=== PATIENT | male | born 1950 | race Caucasian/White ===

== ENCOUNTER → 2021-07-21 | Outpatient (CLI) | payer MEDICARE ==
[2021-07-21 09:07] LABS: MEAN CORPUSCULAR HEMOGLOBIN 35.3 pg (27.5-34.5); MEAN CORPUSCULAR HGB CONC 34.3 g/dL (33.2-36.2); MEAN PLATELET VOLUME 8.8 fL (7.4-10.4); PLATELET COUNT 278 x10^3/uL (130-400); RED BLOOD COUNT 3.85 x10^6/uL (4.38-5.82); RED CELL DISTRIBUTION WIDTH 12.7 % (9.4-14.8)
[2021-07-21 09:15] LABS: ALANINE AMINOTRANSFERASE 25 U/L (12-78); ALBUMIN 3.9 g/dL (3.4-5.0); ANION GAP 7 mmol/L (5-15); CALCIUM 9.1 mg/dL (8.5-10.1); CHLORIDE 107 mmol/L (98-107); CREATININE 0.99 mg/dL (0.7-1.3)
[2021-07-21 09:29] LABS: ALKALINE PHOSPHATASE 36 U/L (45-117); BILIRUBIN,TOTAL 0.7 mg/dL (0.2-1.0); CHOL/HDL RATIO 2.4; CHOLESTEROL, TOTAL 205 mg/dL (140-239); HDL CHOL % 41 % (26-37); HDL CHOLESTEROL (DIRECT) 84 mg/dL (40-60); LDL CHOLESTEROL,CALCULATED 110 mg/dL (54-169); LDL/HDL RATIO 1.3 (0.5-3.0); TOTAL PROTEIN 7.6 g/dL (6.4-8.2); TRIGLYCERIDES 57 mg/dL (50-200); VLDL CHOLESTEROL 11 mg/dL (0-25)
== END | disposition home or self-care (01) ==
LOC: LAB 08:44
PROVIDERS: ATTEND Family Medicine
DX: Z12.5 Encounter for screening for malignant neoplasm of prostate (principal); Z00.00 Encounter for general adult medical examination without abnormal findings
CPT/HCPCS: 36415; 80053; 80061; 83036; 84153; 84443; 85027; G0103